=== PATIENT | male | born 2000 | race Caucasian/White ===

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

== ENCOUNTER 2021-04-20 19:28 | Emergency (ER) | payer BC ==
[~2021-04-20] VITALS: Ht 177.8 cm; Wt 72.7 kg
[2021-04-20 19:53] VITALS: BP 114/70
== END 2021-04-20 20:01 | disposition home or self-care (01) ==
LOC: ER 19:29
DX: R11.2 Nausea with vomiting, unspecified (principal); M79.10 Myalgia, unspecified site; Z20.822 Contact with and (suspected) exposure to COVID-19
CPT/HCPCS: 87635; 99283; C9803

== ENCOUNTER 2021-05-03 12:20 | Emergency (ER) | payer BC ==
[~2021-05-03] VITALS: Ht 172.7 cm; Wt 65.0 kg
[2021-05-03 13:17] VITALS: BP 115/56
== END 2021-05-03 13:31 | disposition home or self-care (01) ==
LOC: ER 12:20
DX: U07.1 COVID-19 (principal)
CPT/HCPCS: 99281

== ENCOUNTER 2021-11-10 21:37 | Emergency (ER) | payer BC ==
[~2021-11-10] VITALS: Ht 172.7 cm; Wt 65.9 kg
[2021-11-10 21:52] VITALS: BP 138/84
[2021-11-11] MEDS ORDERED: triamcinolone acetonide 40mg/ml inj IM ONE (00:40)
[2021-11-11] MEDS ORDERED: cephalexin 250mg capsule PO ONE (00:40)
[2021-11-11] MEDS ORDERED: diphenhydrAMINE 25mg capsule PO ONE (00:40)
[2021-11-11] MEDS ORDERED: TRIA15CR61 TOP (00:42)
[2021-11-11] MEDS ORDERED: PRED20TA PO (00:42)
[2021-11-11] MEDS ORDERED: CEPH250T PO (00:42)
== END 2021-11-11 01:05 | disposition home or self-care (01) ==
LOC: ER 21:38
DX: L25.9 Unspecified contact dermatitis, unspecified cause (principal); R21 Rash and other nonspecific skin eruption; Z79.2 Long term (current) use of antibiotics; Z79.899 Other long term (current) drug therapy
CPT/HCPCS: 96372; 99283; J3301; Q0163